=== PATIENT | female | born 1955 | race Caucasian/White ===

== ENCOUNTER 2019-10-11 17:06 | Emergency (ER) | payer OTHER ==
[~2019-10-11] VITALS: Ht 162.6 cm; Wt 84.8 kg
[2019-10-11] MEDS ORDERED: METFORMIN HCL500 MG (17:32)
[2019-10-11] MEDS ORDERED: NORVASC2.5 M1 (17:32)
== END 2019-10-11 21:38 | disposition home or self-care (01) ==
LOC: ER 17:06
DX: M79.672 Pain in left foot (principal)